=== PATIENT | male | born 1995 | race Two or more races ===

== ENCOUNTER 2019-01-14 14:04 | Emergency (ER) | payer MEDICAID ==
[~2019-01-14] VITALS: Ht 160 cm; Wt 72.1 kg
[2019-01-14 15:14] VITALS: BP 137/97
== END 2019-01-14 15:59 | disposition home or self-care (01) ==
LOC: ER 14:04
DX: S39.012A Strain of muscle, fascia and tendon of lower back, initial encounter (principal); X58.XXXA Exposure to other specified factors, initial encounter; Y93.89 Activity, other specified; Y92.89 Other specified places as the place of occurrence of the external cause; Y99.8 Other external cause status
CPT/HCPCS: 81002

== ENCOUNTER 2025-02-15 16:11 | Inpatient (IN) | payer MEDICAID ==
[~2025-02-15] VITALS: Ht 160 cm; Wt 50.1 kg
[2025-02-15] MEDS: SODIUM CHLORIDE 0.9% 1,000 ML IV ONE ×2 (16:30→20:23)
[2025-02-15] MEDS: LORazepam 2MG/ML-1ML VIAL ONE (17:05)
[2025-02-15] MEDS: LORazepam 2MG/ML-1ML VIAL IV ONE (17:05)
[2025-02-15] MEDS: ONDANSETRON HCL 4 MG/2 ML VIAL ONE (17:05)
[2025-02-15] MEDS: ONDANSETRON HCL 4 MG/2 ML VIAL IV ONE (17:05)
--- NOTE | 2025-02-15 17:07 | ED.PDOC ---
Psychiatric HPI Comments 29 y/o M, presents to the ED for CC of alcohol withdrawal. Patient states, he has been binge drinking Vodka for [id number], having approximately +10 shots daily; endorses last drink to have been as of this morning (02/15/25). Patient relays, that he is a Ex. liver and kidney transplant recipient and Today (02/15/25) is the anniversary of his transplant; endorses this date to be a reoccurring stressor. Upon arrival to the ED, patient appears anxious and is unable to sit still. Patient denies visual hallucinations, auditory hallucinations, palpitations, nausea, vomiting, irritability, or mood swings. Chief Complaint: Withdrawal Time Seen by MD: 17:00 Primary Care Provider: BUSHRA Heath Notes: Nurses Notes, Medications, Allergies Information Source: Patient Mode of Arrival: Ambulatory Severity of Pain: None Severity of Mental Status: None Severity of Symptoms: Moderate Timing: Days Duration: Days Prehospital treatment: None Presents with: Alcohol Intoxication Ingestion: Intentional Current substance abuse: ETOH History of: None Quality: None Associated signs and symptoms: ETOH Past Medical History PAST MEDICAL HISTORY: DM, HTN Past Medical History (Other): Liver and Kidney Transplant Surgical History: Denies all surgeries Family History Family History: Reviewed,noncontributory to illness Social History Smoker: Non-Smoker Alcohol: Heavy Drugs: Denies Drug Use Lives In: Home Constitutional: denies: chills, diaphoresis, fatigue, fever, malaise, sweats, weakness, others EENTM: denies: blurred vision, double vision, ear bleeding, ear discharge, ear drainage, ear pain, ear ringing, eye pain, eye redness, hearing loss, mouth pain, mouth swelling, nasal discharge, nose bleeding, nose congestion, nose pain, photophobia, tearing, throat pain, throat swelling, voice changes, others Respiratory: denies: cough, hemoptysis, orthopnea, SOB at rest, shortness of breath, SOB with excertion, stridor, wheezing, others Cardiovascular: denies: chest pain, dizzy spells, diaphoresis, Dyspnea on exertion, edema, irregular heart beat, left arm pain, lightheadedness, palpitations, PND, syncope, others Gastrointestinal: reports: nausea; denies: abdomen distended, abdominal pain, blood streaked bowels, constipated, diarrhea, dysphagia, difficulty swallowing, hematemesis, melena, poor appetite, poor fluid intake, rectal bleeding, rectal pain, vomiting, others Genitourinary: denies: burning, dysuria, flank pain, frequency, hematuria, incontinence, penile discharge, penile sore, pain, testicle pain, testicle swelling, urgency, others Neurological: denies: dizziness, fainting, headache, left sided numbness, left sided weakness, numbness, paresthesia, pre-existing deficit, right sided numbness, right sided weakness, seizure, speech problems, tingling, tremors, weakness, others Musculoskeletal: denies: back pain, gout, joint pain, joint swelling, muscle pain, muscle stiffness, neck pain, others Integumetry: denies: bruises, change in color, change in hair/nails, dryness, laceration, lesions, lumps, rash, wounds, others Allergic/Immunocompromised: denies: Difficulty Healing, Frequent Infections, Hives, Itching, others Hematologic/Lymphatic: denies: anemia, blood clots, easy bleeding, easy bruising, swollen glands, others Endocrine: denies: excessive hunger, excessive sweating, excessive thirst, excessive urination, flushing, intolerance to cold, intolerance to heat, unexp lained weight gain, unexplained weight loss, others Psychiatric: reports: anxiety; denies: bipolar disorder, depression, hopeless, panic disorder, schizophrenia, sleepless, suicidal, others All Other Systems: Reviewed and Negative Physical Exam General Appearance: No Apparent Distress, Normal, Other (anxious appearing) HEENT: Normal ENT Inspection, Pharynx Normal Neck: Full Range of Motion, Non-Tender, Normal, Normal Inspection Respiratory: Chest Non-Tender, Lungs Clear, No Accessory Muscle Use, No Respiratory Distress, Normal Breath Sounds Cardiovascular: No Edema, No Murmur, No Gallop, Normal Peripheral Pulses, Regular Rate/Rhythm Breast Exam: Deferred Gastrointestinal: No Organomegaly, Non Tender, No Pulsatile Mass, Normal Bowel Sounds, Soft Genitalia: Deferred Pelvic: Deferred Rectal: Deferred Extremities: No calf tenderness, Normal capillary refill, Normal inspection, Normal range of motion, Non-tender, No pedal edema Musculoskeletal : Apperance: Normal Neurologic: Alert, 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 Was a procedure done?: No Psych Differential Dx Intoxication Differential Dx: Alcohol Withdraw Syndrome, Dehydration, Electrolyte Imbalance, Intoxication X-Ray, Labs, Meds, VS Vital Signs Date Time Temp Pulse Resp B/P (MAP) Pulse Ox O2 Delivery O2 Flow Rate FiO2 02/15/25 17:15 94 16 98 Room Air* 0 21 02/15/25 17:15 98.0 94 16 116/86 (96) 98 98.0 02/15/25 16:31 100 02/15/25 16:25 98.2 125 16 133/93 96 98.2 Lab Test 02/15/25 17:29 Range/Units White Blood Count 8.0 4.4-10.8 10^3/uL Red Blood Count 5.12 4.5-5.90 10^6/uL Hemoglobin 16.1 13.5-17.5 g/dL Hematocrit 46.4 41.0-53.0 % Mean Corpuscular Volume 90.6 80.0-100.0 fL Mean Corpuscular Hemoglobin 31.4 28.0-32.0 pg Mean Corpuscular Hemoglobin Concent 34.6 32.0-36.0 g/dL Red Cell Distribution Width 13.3 11.8-14.3 % Platelet Count 244 140-450 10^3/uL Mean Platelet Volume 7.4 6.9-10.8 fL Neutrophils (%) (Auto) 58.9 37.0-80.0 % Lymphocytes (%) (Auto) 32.3 10.0-50.0 % Monocytes (%) (Auto) 8.5 0.0-12.0 % Eosinophils (%) (Auto) 0.0 0.0-7.0 % Basophils (%) (Auto) 0.3 0.0-2.0 % Neutrophils # (Auto) 4.7 1.6-8.6 10 ^3/uL Lymphocytes # (Auto) 2.6 0.4-5.4 10 ^3/uL Monocytes # (Auto) 0.7 0-1.3 10 ^3/uL Eosinophils # (Auto) 0 0-0.8 10 ^3/uL Basophils # (Auto) 0 0-0.2 10 ^3/uL Nucleated Red Blood Cells 0.2 % Sodium Level 142 136-145 mmol/L Potassium Level 4.0 3.5-5.1 mmol/L Chloride Level 101 98-107 mmol/L Carbon Dioxide Level 23 20-31 mmol/L Anion Gap 18 H 5-15 Blood Urea Nitrogen 8 L 9-23 mg/dL Creatinine 0.87 0.700-1.30 mg/dL Glomerular Filtration Rate Calc 120 >90 mL/min BUN/Creatinine Ratio 9.2 L 10.0-20.0 Serum Glucose 273 H 74-106 mg/dL Calcium Level 8.1 L 8.7-10.4 mg/dL Total Bilirubin 0.4 0.2-1.0 mg/dL Aspartate Amino Transferase (AST) 50 H 13-40 U/L Alanine Aminotransferase (ALT) 46 H 7-40 U/L Alkaline Phosphatase 98 46-116 U/L Total Protein 6.3 5.7-8.2 g/dL Albumin 3.9 3.2-4.8 g/dL Plasma/Serum Blood Alcohol 283.6 H <10 mg/dL Current Medications Medications (Trade) Dose Ordered Sig/Rosa Isela Route Start Time Stop Time Status Last Admin Lorazepam (Ativan Inj) 1 mg ONCE ONCE IV 02/15/25 17:00 02/15/25 17:01 DC 02/15/25 17:05 Ondansetron HCl (Zofran) 4 mg ONCE ONCE IV 02/15/25 17:00 02/15/25 17:01 DC 02/15/25 17:05 Sodium Chloride 1,000 ml @ 1,000 mls/hr Q1H ONCE IV 02/15/25 16:30 02/15/25 17:32 DC 02/15/25 16:30 Metoclopramide HCl (Reglan Injection) 10 mg ONCE ONCE IV 02/15/25 17:45 02/15/25 17:46 DC 02/15/25 17:42 X-Ray, Labs, Meds, VS Comment Patient is fairly shaky, to be admitted for alcohol withdrawal Concerns of possible delirium tremors Patient currently hemodynamically stable Time of 1ST Reevaluation: 17:30 Reevaluation 1ST: Unchanged Patient Education/Counseling: Diagnosis, Treatment Family Education/Counseling: No Family Present Departure 1 Departure Time of Disposition: 18:58 Impression: Primary Impression: Alcohol withdrawal delirium Disposition: ADMITTED INPATIENT Condition: Stable Discharged With: Self Critical Care Note Critical Care Time?: No Stability Stability form required: No Heart Score Heart Score: Heart Score Response (Comments) Value History N/A 0 EKG N/A 0 Age N/A 0 Risk Factors N/A 0 Troponin N/A 0 Total 0 I personally scribed for AUNDREA JOSHI ([email or web address]) on 02/15/25 at 17:07. Electronically submitted by Jaja Eldridge ([email or web address]). I personally scribed for AUNDREA JOSHI ([email or web address]) on 02/15/25 at 17:18. Electronically submitted by Jaja Eldridge ([email or web address]). AUNDREA JOSHI Feb 15, 2025 17:07
[2025-02-15 17:15] VITALS: PULSE 94; RESP 16; O2SAT 98
--- NOTE | 2025-02-15 17:39 | ECG ---
[facility] Test Date: 2025-02-15 Test Time: 16:31:55 Pat Name: KALANI DONIS Department: ED Room: Gender: Commercial Subcontractor: Ryan : 1995 Requested By: AUNDREA HUBER* Order Number: [id number] Reading MD: Dominik Pineda Measurements Intervals [place] Rate: 100 P: 54 MI: 122 QRS: 99 QRSD: 80 T: -26 QT: 323 QTc: 417 Interpretive Statements Sinus tachycardia Borderline right axis deviation Nonspecific repol abnormality, inferior leads Electronically Signed On 02-15-2025 19:26:12 PST by Dominik Pineda Please click the below link to view image of tracing.
[2025-02-15] MEDS: METOCLOPRAMIDE HCL 5MG/ml INJ 2ml VIAL IV ONE (17:42)
[2025-02-15 17:58] LABS: Hematocrit 46.4 % (41.0-53.0); Hemoglobin 16.1 g/dL (13.5-17.5); Mean Corpuscular Hemoglobin 31.4 pg (28.0-32.0); Mean Corpuscular Volume 90.6 fL (80.0-100.0); Nucleated Red Blood Cells % 0.2 %
[2025-02-15 18:04] LABS: Albumin 3.9 g/dL (3.2-4.8); Alkaline Phosphatase 98 U/L (46-116); Anion Gap 18 (5-15); BUN/Creatinine Ratio 9.2 (10.0-20.0); Carbon Dioxide 23 mmol/L (20-31); Chloride 101 mmol/L (98-107); Potassium 4.0 mmol/L (3.5-5.1); Sodium 142 mmol/L (136-145); Total Protein 6.3 g/dL (5.7-8.2)
[2025-02-15 18:05] LABS: Bilirubin, Total 0.4 mg/dL (0.2-1.0)
[2025-02-15 18:17] LABS: Alanine Aminotransferase 46 U/L (7-40); Blood Urea Nitrogen 8 mg/dL (9-23); Calcium 8.1 mg/dL (8.7-10.4); Glucose 273 mg/dL (74-106)
[2025-02-15] MEDS ORDERED: DEXTROSE (50%) 50ML SYRG IV PRN (19:15)
--- NOTE | 2025-02-15 19:23 | DVHHP2 ---
History of Present Illness Reason for Visit: Alcohol intoxication History of Present Illness 29-year-old male presents for evaluation of alcohol intoxication. Patient reports binge drinking over the past 10 days. Reports tremors and occasional palpitations. He does have a history of liver and kidney transplant from last year. Past Medical History Hypertension, diabetes mellitus Past Surgical History Liver and kidney transplant Family History Noncontributory Smoke: No ALCOHOL: heavy Drugs: None Lives: with Family Review of Systems Review of Systems Review of systems are currently negative otherwise addressed in HPI. Allergies: Coded Allergies: No Known Drug Allergy (Verified Allergy, Unknown, 02/15/25) Medications Current Medications Medications Dose Ordered Sig/Rosa Isela Route Start Time Stop Time Status Last Admin Dose Admin Folic Acid 1 mg/ Magnesium Sulfate 8 meq/ Multivitamins 10 ml/Thiamine HCl 100 mg/Sodium Chloride 1,013.2 ml @ 126.247 mls/hr DAILY@1800 INJ 02/16/25 18:00 Exam Vital Signs Vital Signs Date Time Temp Pulse Resp B/P (MAP) Pulse Ox O2 Delivery O2 Flow Rate FiO2 02/15/25 19:15 100 17 129/71 (90) 99 02/15/25 17:15 Room Air* 0 21 02/15/25 17:15 98.0 98.0 Exam Gen: 29-year-old male in mild distress Skin: Warm, dry, normal color and texture, no rash. HEENT: Normocephalic atraumatic, mucous membranes moist and pink. Neck: Cervical and supraclavicular nodes normal without enlargement, trachea is midline, thyroid gland is normal without masses. Pulmonary: Clear to auscultation and percussion bilaterally. Cardiac: Regular rate and rhythm. No murmur Abdomen: Soft, nontender, nondistended, bowel sounds present all 4 quadrants, no guarding, no rigidity, no organomegaly. Extremities: No cyanosis, clubbing, no edema Neuro: Cranial nerves II through XII grossly intact, normal affect and speech, no focal motor deficits. Labs/Xrays Labs Test 02/15/25 17:29 Range/Units White Blood Count 8.0 4.4-10.8 10^3/uL Red Blood Count 5.12 4.5-5.90 10^6/uL Hemoglobin 16.1 13.5-17.5 g/dL Hematocrit 46.4 41.0-53.0 % Mean Corpuscular Volume 90.6 80.0-100.0 fL Mean Corpuscular Hemoglobin 31.4 28.0-32.0 pg Mean Corpuscular Hemoglobin Concent 34.6 32.0-36.0 g/dL Red Cell Distribution Width 13.3 11.8-14.3 % Platelet Count 244 140-450 10^3/uL Mean Platelet Volume 7.4 6.9-10.8 fL Neutrophils (%) (Auto) 58.9 37.0-80.0 % Lymphocytes (%) (Auto) 32.3 10.0-50.0 % Monocytes (%) (Auto) 8.5 0.0-12.0 % Eosinophils (%) (Auto) 0.0 0.0-7.0 % Basophils (%) (Auto) 0.3 0.0-2.0 % Neutrophils # (Auto) 4.7 1.6-8.6 10 ^3/uL Lymphocytes # (Auto) 2.6 0.4-5.4 10 ^3/uL Monocytes # (Auto) 0.7 0-1.3 10 ^3/uL Eosinophils # (Auto) 0 0-0.8 10 ^3/uL Basophils # (Auto) 0 0-0.2 10 ^3/uL Nucleated Red Blood Cells 0.2 % Sodium Level 142 136-145 mmol/L Potassium Level 4.0 3.5-5.1 mmol/L Chloride Level 101 98-107 mmol/L Carbon Dioxide Level 23 20-31 mmol/L Anion Gap 18 H 5-15 Blood Urea Nitrogen 8 L 9-23 mg/dL Creatinine 0.87 0.700-1.30 mg/dL Glomerular Filtration Rate Calc 120 >90 mL/min BUN/Creatinine Ratio 9.2 L 10.0-20.0 Serum Glucose 273 H 74-106 mg/dL Calcium Level 8.1 L 8.7-10.4 mg/dL Total Bilirubin 0.4 0.2-1.0 mg/dL Aspartate Amino Transferase (AST) 50 H 13-40 U/L Alanine Aminotransferase (ALT) 46 H 7-40 U/L Alkaline Phosphatase 98 46-116 U/L Total Protein 6.3 5.7-8.2 g/dL Albumin 3.9 3.2-4.8 g/dL Plasma/Serum Blood Alcohol 283.6 H <10 mg/dL SEPSIS Sepsis Screen Date sepsis recognized/suspect: Feb 15, 2025 Time Sepsis recognized/suspect: 1714 Recent Procedure: No On Antibiotic Therapy: No Respiratory Rate >20: No Heart Rate >90: Yes Temp<36 C (96.8 F) or >38.3 C: No SBP <90 or MAP <65 mmHG: No New Acute Mental Status Change: No Is the patient on CPAP, BIPAP,: No Physician Orders Urinalysis (02/15/25 16:48) Head Without Contrast (02/15/25 18:56) Folic Acid... (02/16/25 18:00) (Nf) Mycophenolic Acid (02/15/25 22:00) Tacrolimus (Prograf) (02/15/25 22:00) Consistent Carb(Ccho)Diabetes (02/16/25 Breakfast) Lisinopril Tablet (Zestril Tablet) (02/16/25 10:00) Chlordiazepoxide Hcl Capsule (Librium Ca (02/15/25 19:15) NS (02/15/25 19:15) Admit (02/15/25 19:15) Ondansetron Hcl (Zofran) (02/15/25 19:15) Condition: Stable (02/15/25 19:15) Bedrest With Bathroom Privileg (02/15/25 19:15) Glucose Blood (Accu-Chek Comfort Curve T (02/16/25 00:00) Mild Sliding Scale Npo - Q6hr (02/16/25 00:00) Dextrose 50% Syringe (02/15/25 19:15) Vital Signs Date Time Temp Pulse Resp B/P (MAP) Pulse Ox O2 Delivery O2 Flow Rate FiO2 02/15/25 19:15 100 17 129/71 (90) 99 02/15/25 17:15 94 16 98 Room Air* 0 21 02/15/25 17:15 98.0 94 16 116/86 (96) 98 98.0 02/15/25 16:31 100 02/15/25 16:25 98.2 125 16 133/93 96 98.2 Laboratory Tests Test 02/15/25 17:29 White Blood Count 8.0 10^3/uL (4.4-10.8) Medications Medications Dose Ordered Sig/Rosa Isela Route Start Time Stop Time Status Last Admin Dose Admin Lorazepam 1 mg ONCE ONCE IV 02/15/25 17:00 02/15/25 17:01 DC 02/15/25 17:05 1 MG Metoclopramide HCl 10 mg ONCE ONCE IV 02/15/25 17:45 02/15/25 17:46 DC 02/15/25 17:42 10 MG Ondansetron HCl 4 mg ONCE ONCE IV 02/15/25 17:00 02/15/25 17:01 DC 02/15/25 17:05 4 MG Sodium Chloride 1,000 ml @ 1,000 mls/hr Q1H ONCE IV 02/15/25 16:30 02/15/25 17:32 DC 02/15/25 16:30 1,000 MLS/HR Assessment/Plan Assessment/Plan Assessment Alcohol intoxication Toxic encephalopathy Status post liver/kidney transplant Plan Admit the patient to [facility] to the hospitalist Maintenance IV fluids Librium Resume home medications Continue treatment per orders. Plan discussed with: Patient My Orders Orders - PHILIPPE FRANKLIN Procedure Category Date Status Time (Nf) Mycophenolic Acid PHA 02/15/25 Transmitted 22:00 Tacrolimus (Prograf) PHA 02/15/25 Transmitted 22:00 Consistent DIET 02/16/25 Transmitted Carb(Ccho)Diabetes Breakfast Lisinopril Tablet PHA 02/16/25 Transmitted (Zestril Tablet) 10:00 Chlordiazepoxide Hcl PHA 02/15/25 Transmitted Capsule (Librium Ca 19:15 NS PHA 02/15/25 Transmitted 19:15 Admit ADMIT 02/15/25 Transmitted 19:15 Ondansetron Hcl PHA 02/15/25 Transmitted (Zofran) 19:15 Condition: Stable CARMELA 02/15/25 Transmitted 19:15 Bedrest With Bathroom CARMELA 02/15/25 Transmitted Privileg 19:15 Glucose Blood PHA 02/16/25 Transmitted (Accu-Chek Comfort 00:00 Mild Sliding Scale PHA 02/16/25 Transmitted Npo - Q6hr 00:00 Dextrose 50% Syringe PHA 02/15/25 Transmitted 19:15 Date of Service: Feb 15, 2025 Billing Provider: PHILIPPE FRANKLIN Common Visit Codes: 80046-[id number] INP/OBS CARE (MOD) PHILIPPE FRANKLIN Feb 15, 2025 19:23
[2025-02-15 19:30] VITALS: PULSE 91; RESP 18; O2SAT 98
--- NOTE | 2025-02-15 19:48 | DVH ---
EXAM: CT HEAD WITHOUT CONTRAST INDICATION: altered TECHNIQUE: CT images of the head were obtained without administration of IV contrast. CT scans at this facility use dose modulation, iterative reconstruction, and/or weight based dosing when appropriate to reduce radiation dose to as low as reasonably achievable. COMPARISON: None FINDINGS: PARENCHYMA: No acute hemorrhage. There is no mass effect, midline shift, or herniation. There is preservation of the [place] white differentiation. VENTRICLES: No hydrocephalus. EXTRA-AXIAL SPACES: No extra-axial fluid collections. OTHER: The bony structures are intact. Visualized portions of the paranasal sinuses and mastoid air cells are clear. IMPRESSION: 1. No CT evidence of an acute intracranial abnormality.
[2025-02-15] MEDS: ONDANSETRON HCL 4 MG/2 ML VIAL IV PRN (20:26)
[2025-02-15] MEDS: FOLIC ACID 1 MG, MAGNESIUM SULF SDV 50% 8 MEQ, MULTIPLE VITAMIN 10 ML, THIAMINE INJ 100... INJ ONE (22:00)
[2025-02-15] MEDS: TACROLIMUS 1 MG CAP PO SCH (22:05)
[2025-02-16] VITALS (8 sets, daily range): BP systolic 128–139; BP diastolic 83–184; PULSE 69–93; RESP 16–20; TEMP 97.8–100.2; O2SAT 97–99
[2025-02-16] MEDS: ACCU-CHEK COMFORT CURVE STRIP VI SCH (00:25)
[2025-02-16] MEDS: InsuLIN REG 1unit/0.01ml Soln (100units/ml) SC SCH (00:37)
[2025-02-16] MEDS: LORazepam 2MG/ML-1ML VIAL IV PRN (07:34)
[2025-02-16] MEDS ORDERED: DAPA1TAB4 PO (07:44)
[2025-02-16] MEDS ORDERED: TACR1CAP4 PO (07:44)
[2025-02-16] MEDS ORDERED: MYCO250C PO (07:44)
[2025-02-16] MEDS ORDERED: LISI-275 PO (07:44)
[2025-02-16] MEDS ORDERED: PRED1PAK8 PO (07:44)
[2025-02-16 08:57] LABS: Hematocrit 46.2 % (41.0-53.0); Hemoglobin 15.9 g/dL (13.5-17.5); Mean Corpuscular Hemoglobin 31.7 pg (28.0-32.0); Mean Corpuscular Volume 91.8 fL (80.0-100.0); Nucleated Red Blood Cells % 0.1 %
[2025-02-16 09:13] LABS: Albumin 3.8 g/dL (3.2-4.8); Alkaline Phosphatase 93 U/L (46-116); Anion Gap 11 (5-15); BUN/Creatinine Ratio 14.8 (10.0-20.0); Bilirubin, Total 0.8 mg/dL (0.2-1.0); Blood Urea Nitrogen 13 mg/dL (9-23); Carbon Dioxide 29 mmol/L (20-31); Chloride 101 mmol/L (98-107); Potassium 4.0 mmol/L (3.5-5.1); Sodium 141 mmol/L (136-145); Total Protein 5.9 g/dL (5.7-8.2)
[2025-02-16 09:19] LABS: Alanine Aminotransferase 42 U/L (7-40); Calcium 8.6 mg/dL (8.7-10.4); Glucose 193 mg/dL (74-106)
--- NOTE | 2025-02-16 09:54 | DVH ---
INDICATION: Hepatic steatosis/cirrhosis TECHNIQUE: Multiple real-time sonographic images of the abdomen were obtained. COMPARISON: None FINDINGS: The liver is homogenous in echogenicity. The liver measures 15cm. No intrahepatic biliary ductal dilatation is noted. Gallbladder removed. Common bile duct measures 4 mm. The right kidney measures 8cm. No hydronephrosis. The pancreas is not well visualized due to obscuration from bowel gas. The visualized portions of the IVC and aorta are grossly unremarkable. IMPRESSION: Normal exam of the abdomen.
[2025-02-16] MEDS: CYANOCOBALAMIN 500 MCG TAB PO SCH (10:40)
[2025-02-16] MEDS: FOLIC ACID 1 MG TAB PO ONE (10:40)
[2025-02-16] MEDS: LISINOPRIL 5 MG TAB PO SCH (10:43)
[2025-02-16] MEDS: INSULIN LANTUS (GLARGINE) 1 /0.01ml (100units/ml) SC ONE (12:11)
[2025-02-16] MEDS: INSULIN LANTUS (GLARGINE) 1 /0.01ml (100units/ml) SC SCH (12:12)
--- NOTE | 2025-02-16 14:26 | DVHINCON2 ---
Date of Service if different f: Feb 16, 2025 Time of Service: 13:30 Consultation ([facility]) Consulting Physician: Leonel Progress: Better Labs Laboratory Tests Test 02/15/25 17:29 02/16/25 08:25 02/16/25 11:42 Plasma/Serum Blood Alcohol 283.6 mg/dL (<10) White Blood Count 7.9 10^3/uL (4.4-10.8) Red Blood Count 5.03 10^6/uL (4.5-5.90) Hemoglobin 15.9 g/dL (13.5-17.5) Hematocrit 46.2 % (41.0-53.0) Mean Corpuscular Volume 91.8 fL (80.0-100.0) Mean Corpuscular Hemoglobin 31.7 pg (28.0-32.0) Mean Corpuscular Hemoglobin Concent 34.5 g/dL (32.0-36.0) Red Cell Distribution Width 12.8 % (11.8-14.3) Platelet Count 190 10^3/uL (140-450) Mean Platelet Volume 7.4 fL (6.9-10.8) Neutrophils (%) (Auto) 73.8 % (37.0-80.0) Lymphocytes (%) (Auto) 19.0 % (10.0-50.0) Monocytes (%) (Auto) 6.9 % (0.0-12.0) Eosinophils (%) (Auto) 0.0 % (0.0-7.0) Basophils (%) (Auto) 0.3 % (0.0-2.0) Neutrophils # (Auto) 5.8 10 ^3/uL (1.6-8.6) Lymphocytes # (Auto) 1.5 10 ^3/uL (0.4-5.4) Monocytes # (Auto) 0.5 10 ^3/uL (0-1.3) Eosinophils # (Auto) 0 10 ^3/uL (0-0.8) Basophils # (Auto) 0 10 ^3/uL (0-0.2) Nucleated Red Blood Cells 0.1 % Sodium Level 141 mmol/L (136-145) Potassium Level 4.0 mmol/L (3.5-5.1) Chloride Level 101 mmol/L (98-107) Carbon Dioxide Level 29 mmol/L (20-31) Anion Gap 11 (5-15) Blood Urea Nitrogen 13 mg/dL (9-23) Creatinine 0.88 mg/dL (0.700-1.30) Glomerular Filtration Rate Calc 119 mL/min (>90) BUN/Creatinine Ratio 14.8 (10.0-20.0) Serum Glucose 193 mg/dL (74-106) Hemoglobin A1c 10.7 % A1C (<5.7) Calcium Level 8.6 mg/dL (8.7-10.4) Magnesium Level 1.7 mg/dL (1.6-2.6) Total Bilirubin 0.8 mg/dL (0.2-1.0) Aspartate Amino Transf (AST/SGOT) 50 U/L (13-40) Alanine Aminotransferase (ALT/SGPT) 42 U/L (7-40) Alkaline Phosphatase 93 U/L (46-116) Total Protein 5.9 g/dL (5.7-8.2) Albumin 3.8 g/dL (3.2-4.8) Vitamin B12 Level 1231 pg/mL (211-911) Vitamin D 25-Hydroxy 52.9 ng/mL (30.0-100) Thyroid Stimulating Hormone (TSH) 1.32 uIU/mL (0.55-4.78) Bedside Glucose 266 mg/dl (70-106) Appetite: Poor Side effects of medications: No Appearance: Stated age Psychomotor activity: WNL Behavioral: Cooperative Eye contact: Avoids Speech: Soft Affect: Restricted Mood: Depressed Thought processes: Linear/Goal-directed Thought content: WNL Suicidal ideations: Absent Homicidal ideations: Absent Orientation: Person, Place, Time Memory intact: Remote (good) Intellect: Average Abstractability: Marginal Concentration: Limited Attention: Limited Judgement: Marginal Insight: Marginal Vitals Vital Signs Date Time Temp Pulse Resp B/P (MAP) Pulse Ox O2 Delivery O2 Flow Rate FiO2 02/16/25 13:00 99.2 69 18 139/84 (102) 98 99.2 02/16/25 06:08 Room Air* 0 21 Current medications Current Medications Medications Dose Ordered Sig/Rosa Isela Route Start Time Stop Time Status Last Admin Dose Admin Patient Own Medication 720 mg BID PO 02/15/25 22:00 02/16/25 10:42 720 MG Tacrolimus 2 mg BID PO 02/15/25 22:00 02/16/25 10:41 2 MG Lisinopril 10 mg DAILY PO 02/16/25 10:00 02/16/25 10:43 10 MG Chlordiazepoxide HCl 25 mg Q6HPRN PRN PO 02/15/25 19:15 Ondansetron HCl 4 mg Q4HP PRN IV 02/15/25 19:15 02/15/25 20:26 4 MG Diagnostic Test (Pha) 1 strip Q6HR 02/16/25 00:00 02/16/25 12:11 1 STRIP Insulin Human Regular Q6HR SC 02/16/25 00:00 02/16/25 12:15 6 UNITS Dextrose 50 ml UD PRN IV 02/15/25 19:15 Folic Acid 1 mg/ Magnesium Sulfate 8 meq/ Multivitamins 10 ml/Thiamine HCl 100 mg/Sodium Chloride 1,013.2 ml @ 126.247 mls/hr DAILY@1800 INJ 02/16/25 18:00 Lorazepam 1 mg Q2HP PRN IV 02/16/25 00:15 02/16/25 10:44 1 MG Cyanocobalamin 500 mcg DAILY PO 02/16/25 08:00 02/16/25 10:40 500 MCG Prednisone 5 mg DAILY PO 02/16/25 10:00 02/16/25 10:39 5 MG Insulin Glargine 20 units QAM SC 02/16/25 10:15 02/16/25 12:12 20 UNITS Treatment plan discussed: With staff Medication adjusted: Yes Labs ordered: No Type: Voluntary Diagnosis: [place] I : [place] II : [place] III : [place] IV : [place] V : Plan : History of Present Illness The patient is a 29-year-old single male who lives with his family and is currently unemployed. His psychiatric history includes Major Depressive Disorder, generalized anxiety, and alcohol use disorder. He has previously been treated with Lexapro and Vistaril. He was admitted to the medical floor for the management of alcohol withdrawal, and Psychiatry was consulted to evaluate possible depression and ongoing alcohol use. The patient was seen and evaluated by the senior underwriter via the telepsychiatry platform. He appeared slightly anxious and maintained poor eye contact during the assessment. He reported feeling increasingly depressed, overwhelmed, and frustrated over the past several days. He described persistent feelings of worthlessness and hopelessness and expressed significant guilt about drinking again shortly after receiving a liver transplant five days ago. He stated that he had been drinking regularly, with his most recent alcohol use occurring yesterday, and he endorsed a history of alcohol withdrawal with worsening symptoms. Although he denied any current suicidal ideation, intent, or plan, he reported poor sleep, decreased appetite, and diminished energy. Supportive therapy and psychoeducation were provided during the encounter. The patient denied any homicidal ideation and denied auditory or visual hallucinations, paranoid thoughts, or other psychotic symptoms. There was no evidence that he was internally preoccupied or responding to internal stimuli. With respect to anxiety, he endorsed a history of generalized anxiety but denied symptoms consistent with panic disorder, agoraphobia, social anxiety disorder, or specific phobias. He also denied any symptoms suggestive of elena, including decreased need for sleep, elevated mood, increased goal-directed activity, or im pulsive behaviors. On mental status examination, the patient appeared as a well-developed young male in no acute distress. He was cooperative but displayed noticeable anxiety. His speech was normal in rate, rhythm, and volume. His mood was described as de pressed and overwhelmed, and his affect was constricted but congruent with his mood. His thought processes were linear and goal-directed, and his thought content did not include suicidal or homicidal ideation, hallucinations, or delusional beliefs. He was alert and oriented, with no gross cognitive deficits observed. Insight and judgment were limited, particularly regarding his alcohol use and recent relapse. Overall, the patient presents with worsening depressive symptoms in the context of active alcohol use, recent liver transplantation, and current alcohol withdrawal. His presentation is consistent with a depressive episode compounded by alcohol-related concerns and significant psychosocial stress. There are no acute safety concerns at this time, as he denies suicidal and homicidal ideation and does not exhibit psychotic features. Continued monitoring on the medical unit is appropriate while addressing withdrawal, mood symptoms, and relapse prevention needs. Supportive therapy and coping-skill reinforcement were provided. Review of Systems Review of systems, please see the HPI and problem list above. Otherwise: -Constitutional symptoms: None reported. -Eye/ENT: None reported -Respiratory symptoms: None reported. -Cardiovascular symptoms: None reported. -GI symptoms: None reported. -Musculoskeletal symptoms: None reported -Neurologic symptoms: None reported -Psychiatric symptoms: See HPI -Other significant review of systems: None reported. Mental State Examination -General Appearance: Young M who was examined at bedside in his hospital room. He is in no acute physical distress. Grooming and personal hygiene are poor. Musculoskeletal development is normal. There is no evidence of movement disorder. -Attitude: The patient is alert and superficially cooperative -Eye Contact: fair eye contact. -Psychomotor Agitation: None -Level of consciousness: Alert awake -Orientation: well orientated to time/place/person. -Mood/Affect: Mood is depressed Affect is constricted -Speech: Volume (decreased ). Rate (Normal). Tone (Normal). -Cognition: Attention span is poor. Memory for recent and remote events appears to be intact. -Thought Process: There is no evidence of psychotic thought process disorder. -Thought Content: There is no evidence of hallucinations, delusions, illusions or agitation. Denies any SI. There is no evidence of homicidal ideation. -Insight/Judgment: Insight and judgment for routine life events is poor . Musculoskeletal/neurological Examination -Pt was noted to have a norm body habitus. -Muscle Strength and tone was considered normal. -No spasticity or EPS were noted. -Gait and station were normal. Substance Abuse -Alcohol: drink unknown amount of beer intermittently. Last drink was yesterday. Denies any history of etoh withdrawal seizures. Denies any history of etoh withdrawal DTs -Denies any other illicit drug use. -denies any history of detox/rehabs Past Psychiatric History. -Self reported history of depression and anxiety -History of psychotropic medications use in the past. History of Lexapro and Vustaril use -Denies any history of inpatient psychiatric admission. -Denies any history of suicidal ideation or attempt. -Denies any History of outpatient services. -Denies any history of Violence. Social/developmental History. -Pt is single, never and lives with family -Pt is unemployed. -Pt denies any access to weapons or guns -Denies any history of services. -Denies any History of abuse including sexual, physical or emotional abuse -Denies any history probation, parole or detention. Past Medical History/Allergies -No significant medical history. -Allergies : NKDA Family History -Denies Assessment/Plan The patient is a 29-year-old single male who lives with his family and is currently unemployed. His psychiatric history includes Major Depressive Disorder, generalized anxiety, and alcohol use disorder. He has previously been treated with Lexapro and Vistaril. He was admitted to the medical floor for the management of alcohol withdrawal, and Psychiatry was consulted to evaluate po ssible depression and ongoing alcohol use. The patient presents with a depressed mood complicated by active alcohol use in the setting of a recent liver transplant. He denies any suicidal or homicidal ideation and denies auditory or visual hallucinations or delusional thinking. Psychoeducation was provided regarding coping skills, the importance of continuity of care, medication adherence, and psychotherapy. The patient verbalized understanding and agreement with the plan at this time. Legal: Vol Diagnosis Psychiatric Dx: MMD recurrent Alcohol use disorder Medical Dx: See List Plan -Continue to optimize medical management at this time. -Start Remeron 15mg po qhs and consider naltrexone 50mg po qd to decrease alcohol craving -CIWA score, Thiamine, Folic acid and MVT for etoh use -After medical stabilization, patient can be discharge home and refer to outpatient services for continuation of care. -Thank you for the consult. -Please reconsult as needed. Case was discussed with the electrical engineering drafting officer/Diagnosis/Plan Reviewed: Consults SANGEETHA REECE MD Feb 16, 2025 14:26
--- NOTE | 2025-02-16 16:42 | DVHPNRES ---
Progress Note Date Seen: Feb 16, 2025 Resident Creating Document: SUAD WELCH RESIDENT Medical Necessity Reason Pt with a Central, PICC or Fol: No Subjective Review of Systems Patient is 29 years old male with past medical history of hypertension, diabetes mellitus likely type 2 on insulin, history of alcoholic liver failure, status post liver and kidney transplant, chronic alcoholic, major depressive disorder, generalized anxiety came with a complaint of BC drinking followed by nausea vomiting. As per patient he has been having binge drinking, 50 mL of 10 shortness every day for last 10 days. Started having nausea and vomiting x2, nonbloody. Also reported tremor and palpitation. On admission patient was tachycardic. Initial lab workup revealed AST 50, ALT 46, A1c 10.7, serum alcohol 283, anion gap 18. CT head no acute intracranial abnormality. Ultrasound of the abdomen Normal exam of the abdomen. PMH-hypertension, diabetes mellitus likely type 2 on insulin, history of alcoholic liver failure, status post liver and kidney transplant, chronic alcoholic,major depressive disorder, generalized anxiety PSH- liver and kidney transplant Allergy- NKDA Personal History/ Social History- alcoholic, lives with parents Home medications-insulin short and long-acting, tacrolimus, mycophenolate, prednisolone, lisinopril, Lexapro, Vistaril Review of other system Cardiovascular- deny acute chest pain or shortness of breath or cough or palpitation Respiratory denies cough or short of breath or wheezing Gastrointestinal- nausea and vomiting Musculoskeletal-denies acute joint swelling or tenderness or redness Neurological- palpitation and tremor Psychiatry- denies depression or SI or HI Skin- denies acute rash or purpura Patient is seen today at bedside, labs and chart reviewed. Patient reported feeling better today. Patient has a fine tremor, CIWA 7, on CIWA protocol. Ultrasound of the liver no acute abnormality noted. Restarted patient's home medication tacrolimus, mycophenolate, prednisolone. Patient's tele psych consult to rule out acute depression. Tele psych recommended for Remeron 50 mg p.o. q.h.s.. And also counseled on naltrexone 50 mg p.o. q.d. to decrease alcohol craving.refer to outpatient services for continuation of care. Objective vital signs Vital Sign Date Time Temp Pulse Resp B/P (MAP) Pulse Ox O2 Delivery O2 Flow Rate FiO2 02/16/25 13:00 99.2 69 18 139/84 (102) 98 99.2 02/16/25 06:08 Room Air* 0 21 Total Intake and Output 02/15/25 02/15/25 02/16/25 15:00 23:00 07:00 Intake Total 1000 ml Balance 1000 ml medications Current Medications Medications Dose Ordered Sig/Rosa [place]ela Route Start Time Stop Time Status Last Admin Dose Admin Patient Own Medication 720 mg BID PO 02/15/25 22:00 02/16/25 10:42 720 MG Tacrolimus 2 mg BID PO 02/15/25 22:00 02/16/25 10:41 2 MG Lisinopril 10 mg DAILY PO 02/16/25 10:00 02/16/25 10:43 10 MG Chlordiazepoxide HCl 25 mg Q6HPRN PRN PO 02/15/25 19:15 Ondansetron HCl 4 mg Q4HP PRN IV 02/15/25 19:15 02/15/25 20:26 4 MG Diagnostic Test (Pha) 1 strip Q6HR 02/16/25 00:00 02/16/25 12:11 1 STRIP Insulin Human Regular Q6HR SC 02/16/25 00:00 02/16/25 12:15 6 UNITS Dextrose 50 ml UD PRN IV 02/15/25 19:15 Folic Acid 1 mg/ Magnesium Sulfate 8 meq/ Multivitamins 10 ml/Thiamine HCl 100 mg/Sodium Chloride 1,013.2 ml @ 126.247 mls/hr DAILY@1800 INJ 02/16/25 18:00 Lorazepam 1 mg Q2HP PRN IV 02/16/25 00:15 02/16/25 14:18 1 MG Cyanocobalamin 500 mcg DAILY PO 02/16/25 08:00 02/16/25 10:40 500 MCG Prednisone 5 mg DAILY PO 02/16/25 10:00 02/16/25 10:39 5 MG Insulin Glargine 20 units QAM SC 02/16/25 10:15 02/16/25 12:12 20 UNITS Examination General examination- awake, alert, oriented HEENT- PEERLA, no acute nasal discharge Cardiovascular- S1-S2 audible, rate and rhythm regular, no murmur Respiratory- CTAB, no wheeze or rhonchi Gastrointestinal-nontender, bowel sound+. Nondistended, abdominal scar present Musculoskeletal-no acute joint swelling or tenderness or redness Lower extremity- no leg edema Neurological- cranial nerves intact, no acute dysarthria or dysphagia Psychiatry- denies depression or SI or HI Skin- no acute rash or purpura laboratory and microbiology Laboratory Tests 02/16/25 08:25 Test 02/16/25 08:25 Range/Units Serum Glucose 193 H 74-106 mg/dL Problem List/Assessment/Plan Problem List/Assessment/Plan Assessment and plan # acute alcohol intoxication # toxic encephalopathy # alcohol abuse disorder # transaminitis # metabolic acidosis likely due to alcohol-induced # status post liver kidney transplant -serum alcohol 283 -continue IV fluid as prescribed -patient on CIWA protocol -continue thiamine and folic acid as prescribed -patient is counseled about the effect of alcohol abuse disorder on -monitor vitals # diabetes mellitus likely type 2 with the hypoglycemia -hemoglobin A1c 10.7 -continue insulin as prescribed -monitor blood sugar # hypertension - continue lisinopril 10 mg p.o. daily # status post liver and kidney transplant -resumed home medication tacrolimus, mycophenolate, prednisolone -patient is counseled about the importance of med adherence # major depressive disorder # generalized anxiety disorder -status post tele psych consult, recommended Remeron 50 mg p.o. q.h.s. -continue citalopram 20 mg p.o. daily Diet-low carb, cardiac diet Goals of care, Code status full code ; discussed with >15 minutes PUD prophylaxis: Pantoprazole DVT prophylaxis: Patient ambulating Plan discussed with Dr. Mcclain , nursing staff, Total time spent on patient evaluation, chart review, assessment and plan, discussion discussion >35 minutes Plan discussed with: Patient, Other (RN) My Orders My Orders Orders - SUAD WELCH RESIDENT Procedure Category Date Status Time Vitamin B12 LAB 02/16/25 In Process 07:50 Folate (Folic Acid) LAB 02/16/25 In Process 07:50 Drug Screen LAB 02/16/25 Logged 07:50 Cyanocobalamin PHA 02/16/25 In Process (Vitamin B-12) 08:00 LIVER US 02/16/25 Resulted 08:15 Prednisone Tablet PHA 02/16/25 In Process 10:00 Insulin Lantus PHA 02/16/25 In Process (Glargine) (Lantus) 10:15 Date of Service: Feb 16, 2025 Billing Provider: OLGA MCCLAIN MD Common Visit Codes: [id number] INP/OBS CARE(HIGH) SUAD WELCH RESIDENT Feb 16, 2025 16:42 OLGA MCCLAIN MD Feb 27, 2025 21:03
[2025-02-16] MEDS: CITALOPRAM HYDROBR 20 MG TAB PO SCH (18:34)
[2025-02-16] MEDS: FOLIC ACID 1 MG, MAGNESIUM SULF SDV 50% 8 MEQ, MULTIPLE VITAMIN 10 ML, THIAMINE INJ 100... INJ SCH (18:41)
[2025-02-16 21:54] LABS: Urine Protein, UAD Negative (Negative)
[2025-02-16] MEDS: MIRTAZAPINE 30 MG TAB PO SCH (22:00)
[2025-02-16 22:04] LABS: Cannabinoid Screen, Urine Pos (NEGATIVE)
[2025-02-16 22:07] LABS: Amphetamine Screen, Urine Neg (NEGATIVE); Barbiturate Scree,Urine Neg (NEGATIVE); Benzodiazephine Screen, Urine Neg (NEGATIVE); Cocaine Screen, Urine Neg (NEGATIVE); Opiate Scree,Urine Neg (NEGATIVE); Phencyclidine Screen, Urine Neg (NEGATIVE)
[2025-02-17] VITALS (7 sets, daily range): BP systolic 112–140; BP diastolic 74–104; PULSE 58–82; RESP 16–19; TEMP 97–98.5; O2SAT 97–100
[2025-02-17 06:44] LABS: Hematocrit 48.0 % (41.0-53.0); Hemoglobin 16.9 g/dL (13.5-17.5); Mean Corpuscular Hemoglobin 32.2 pg (28.0-32.0); Mean Corpuscular Volume 91.4 fL (80.0-100.0); Nucleated Red Blood Cells % 0.1 %
[2025-02-17 07:01] LABS: Albumin 4.1 g/dL (3.2-4.8); Alkaline Phosphatase 98 U/L (46-116); Anion Gap 11 (5-15); BUN/Creatinine Ratio 14.0 (10.0-20.0); Bilirubin, Total 1.0 mg/dL (0.2-1.0); Blood Urea Nitrogen 13 mg/dL (9-23); Calcium 9.2 mg/dL (8.7-10.4); Carbon Dioxide 28 mmol/L (20-31); Chloride 105 mmol/L (98-107); Magnesium 1.8 mg/dL (1.6-2.6); Potassium 3.8 mmol/L (3.5-5.1); Sodium 144 mmol/L (136-145); Total Protein 6.6 g/dL (5.7-8.2)
[2025-02-17 07:04] LABS: Alanine Aminotransferase 48 U/L (7-40); Glucose 117 mg/dL (74-106)
[2025-02-17] MEDS: MULTIPLE VITAMIN TAB PO ONE (14:12)
[2025-02-17] MEDS: FOLIC ACID 1 MG TAB PO ONE (14:12)
[2025-02-17] MEDS: THIAMINE HCL 100 MG TAB PO ONE (14:12)
[2025-02-17] MEDS: MAGNESIUM OXIDE 400 MG TAB PO ONE (14:12)
--- NOTE | 2025-02-17 14:28 | DVHPN2 ---
Progress Note Date Seen: Feb 17, 2025 Medical Necessity Reason Pt with a Central, PICC or Fol: No Subjective Review of Systems Patient is 29 years old male with past medical history of hypertension, diabetes mellitus likely type 2 on insulin, history of alcoholic liver failure, status post liver and kidney transplant, chronic alcoholic, major depressive disorder, generalized anxiety came with a complaint of BC drinking followed by nausea vomiting. As per patient he has been having binge drinking, 50 mL of 10 shortness every day for last 10 days. Started having nausea and vomiting x2, nonbloody. Also reported tremor and palpitation. On admission patient was tachycardic. Initial lab workup revealed AST 50, ALT 46, A1c 10.7, serum alcohol 283, anion gap 18. CT head no acute intracranial abnormality. Ultrasound of the abdomen Normal exam of the abdomen. PMH-hypertension, diabetes mellitus likely type 2 on insulin, history of alcoholic liver failure, status post liver and kidney transplant, chronic alcoholic,major depressive disorder, generalized anxiety PSH- liver and kidney transplant Allergy- NKDA Personal History/ Social History- alcoholic, lives with parents Home medications-insulin short and long-acting, tacrolimus, mycophenolate, prednisolone, lisinopril, Lexapro, Vistaril Review of other system Cardiovascular- deny acute chest pain or shortness of breath or cough or palpitation Respiratory denies cough or short of breath or wheezing Gastrointestinal- nausea and vomiting Musculoskeletal-denies acute joint swelling or tenderness or redness Neurological- palpitation and tremor Psychiatry- denies depression or SI or HI Skin- denies acute rash or purpura Patient is seen today at bedside, labs and chart reviewed. Patient reported feeling better today. Patient has a fine tremor, CIWA 7, on CIWA protocol. Ultrasound of the liver no acute abnormality noted. Restarted patient's home medication tacrolimus, mycophenolate, prednisolone. Patient's tele psych consult to rule out acute depression. Tele psych recommended for Remeron 50 mg p.o. q.h.s.. And also counseled on naltrexone 50 mg p.o. q.d. to decrease alcohol craving.refer to outpatient services for continuation of care. On 02/17/25, the patient was seen and examined at bedside. Overnight events were reviewed. The patient reports improvement in his symptoms. CIWA score was 8 today. The patient was provided thiamine, folic acid, and a multivitamin for alcohol use. After medical stabilization, the patient can be discharged home and referred to outpatient services for continuation of care. Objective vital signs Vital Sign Date Time Temp Pulse Resp B/P (MAP) Pulse Ox O2 Delivery O2 Flow Rate FiO2 02/17/25 13:00 98.5 70 17 140/104 (116) 97 98.5 02/17/25 08:00 Room Air* 0 21 Total Intake and Output 02/16/25 02/16/25 02/17/25 15:00 23:00 07:00 Intake Total 1400 ml 700 ml Output Total 500 ml Balance 1400 ml 200 ml medications Current Medications Medications Dose Ordered Sig/Rosa [place]ela Route Start Time Stop Time Status Last Admin Dose Admin Patient Own Medication 720 mg BID PO 02/15/25 22:00 02/17/25 09:50 720 MG Tacrolimus 2 mg BID PO 02/15/25 22:00 02/17/25 09:49 2 MG Lisinopril 10 mg DAILY PO 02/16/25 10:00 02/17/25 09:49 10 MG Chlordiazepoxide HCl 25 mg Q6HPRN PRN PO 02/15/25 19:15 02/17/25 14:22 25 MG Ondansetron HCl 4 mg Q4HP PRN IV 02/15/25 19:15 02/15/25 20:26 4 MG Diagnostic Test (Pha) 1 strip Q6HR 02/16/25 00:00 02/17/25 11:39 1 STRIP Insulin Human Regular Q6HR SC 02/16/25 00:00 02/17/25 11:42 6 UNITS Dextrose 50 ml UD PRN IV 02/15/25 19:15 Lorazepam 1 mg Q2HP PRN IV 02/16/25 00:15 02/17/25 14:22 1 MG Cyanocobalamin 500 mcg DAILY PO 02/16/25 08:00 02/17/25 09:48 500 MCG Prednisone 5 mg DAILY PO 02/16/25 10:00 02/17/25 09:48 5 MG Insulin Glargine 20 units QAM SC 02/16/25 10:15 02/16/25 12:12 20 UNITS Citalopram Hydrobromide 20 mg DAILY PO 02/16/25 17:15 02/17/25 11:20 20 MG Mirtazapine 15 mg HS PO 02/16/25 22:00 Folic Acid 1 mg DAILY PO 02/18/25 10:00 Multivitamins 1 tab DAILY PO 02/18/25 10:00 Magnesium Oxide 400 mg DAILY PO 02/18/25 10:00 Thiamine HCl 100 mg DAILY PO 02/18/25 10:00 Examination General examination- awake, alert, oriented HEENT- PEERLA, no acute nasal discharge Cardiovascular- S1-S2 audible, rate and rhythm regular, no murmur Respiratory- CTAB, no wheeze or rhonchi Gastrointestinal-nontender, bowel sound+. Nondistended, abdominal scar present Musculoskeletal-no acute joint swelling or tenderness or redness Lower extremity- no leg edema Neurological- cranial nerves intact, no acute dysarthria or dysphagia Psychiatry- denies depression or SI or HI Skin- no acute rash or purpura laboratory and microbiology Laboratory Tests 02/17/25 06:15 Test 02/17/25 06:15 Range/Units Serum Glucose 117 H 74-106 mg/dL Labs and/or images reviewed: Labs reviewed by me, Image(s) reviewed by me Problem List/Assessment/Plan Problem List/Assessment/Plan Assessment and plan # acute alcohol intoxication # toxic encephalopathy # alcohol abuse disorder # transaminitis # metabolic acidosis likely due to alcohol-induced # status post liver kidney transplant -CIWA score: 8 -serum alcohol 283 -continue IV fluid as prescribed -patient on CIWA protocol -continue thiamine and folic acid as prescribed -patient is counseled about the effect of alcohol abuse disorder on -monitor vitals -magnesium # diabetes mellitus likely type 2 with the hypoglycemia -hemoglobin A1c 10.7 -continue insulin as prescribed -monitor blood sugar # hypertension - continue lisinopril 10 mg p.o. daily # status post liver and kidney transplant -resumed home medication tacrolimus, mycophenolate, prednisolone -patient is counseled about the importance of med adherence # major depressive disorder # generalized anxiety disorder -status post tele psych consult, recommended Remeron 50 mg p.o. q.h.s. -continue citalopram 20 mg p.o. daily -mirtazapine Diet-low carb, cardiac diet Goals of care, Code status full code ; discussed with >15 minutes PUD prophylaxis: Pantoprazole DVT prophylaxis: Patient ambulating Plan discussed with Dr. Mcclain , nursing staff, Total time spent on patient evaluation, chart review, assessment and plan, discussion discussion >35 minutes Plan discussed with: Patient Date of Service: Feb 17, 2025 Billing Provider: OLGA MCCLAIN MD Common Visit Codes: [id number] INP/OBS CARE(HIGH) GREGORY CALZADA RESIDENT Feb 17, 2025 14:28
[2025-02-18 01:00] VITALS: BP 123/79; PULSE 58; RESP 13; TEMP 98.2; O2SAT 98
[2025-02-18 06:57] LABS: Albumin 3.9 g/dL (3.2-4.8); Alkaline Phosphatase 93 U/L (46-116); Anion Gap 12 (5-15); BUN/Creatinine Ratio 16.1 (10.0-20.0); Bilirubin, Total 0.8 mg/dL (0.2-1.0); Blood Urea Nitrogen 14 mg/dL (9-23); Calcium 9.1 mg/dL (8.7-10.4); Carbon Dioxide 26 mmol/L (20-31); Chloride 105 mmol/L (98-107); Sodium 143 mmol/L (136-145); Total Protein 6.5 g/dL (5.7-8.2)
[2025-02-18 06:58] LABS: Hematocrit 48.3 % (41.0-53.0); Hemoglobin 17.1 g/dL (13.5-17.5); Mean Corpuscular Hemoglobin 32.2 pg (28.0-32.0); Mean Corpuscular Volume 91.0 fL (80.0-100.0); Nucleated Red Blood Cells % 0.2 %
[2025-02-18 07:03] LABS: Alanine Aminotransferase 78 U/L (7-40); Glucose 135 mg/dL (74-106); Potassium 3.4 mmol/L (3.5-5.1)
[2025-02-18 08:00] VITALS: RESP 18
[2025-02-18 09:00] VITALS: BP 137/81; PULSE 60; RESP 16; TEMP 98.2; O2SAT 99
[2025-02-18] MEDS ORDERED: FOLIC ACID 1 MG TAB ONE (09:39)
[2025-02-18] MEDS ORDERED: THIAMINE HCL 100 MG TAB ONE (09:39)
[2025-02-18] MEDS ORDERED: MULTIPLE VITAMIN TAB ONE (09:40)
[2025-02-18] MEDS ORDERED: MAGNESIUM OXIDE 400 MG TAB ONE (09:40)
[2025-02-18] MEDS: FOLIC ACID 1 MG TAB PO SCH (09:47)
[2025-02-18] MEDS: MULTIPLE VITAMIN TAB PO SCH (09:47)
[2025-02-18] MEDS: MAGNESIUM OXIDE 400 MG TAB PO SCH (09:48)
[2025-02-18] MEDS: THIAMINE HCL 100 MG TAB PO SCH (09:48)
[2025-02-18] MEDS ORDERED: POTASSIUM CHL 20 Meq TABLET PO ONE (09:59)
[2025-02-18] MEDS: POTASSIUM CHL 20 Meq TABLET PO ONE (10:02)
[2025-02-18] MEDS ORDERED: THIA100T13 PO (10:29)
[2025-02-18] MEDS ORDERED: FOLI-119 PO (10:29)
--- NOTE | 2025-02-18 10:33 | DVHDSRES ---
Discharge Summary Date of Admission Resident Creating Document: SUAD WELCH RESIDENT Feb 15, 2025 at 19:15 Date of Discharge: Feb 18, 2025 Admitting Diagnosis Acute alcohol intoxication, Toxic encephalopathy Labs/Diagnostic Data: Laboratory Results Test 02/18/25 05:43 02/18/25 05:20 02/17/25 06:15 02/16/25 21:15 White Blood Count 6.2 10^3/uL (4.4-10.8) Red Blood Count 5.31 10^6/uL (4.5-5.90) Hemoglobin 17.1 g/dL (13.5-17.5) Hematocrit 48.3 % (41.0-53.0) Mean Corpuscular Volume 91.0 fL (80.0-100.0) Mean Corpuscular Hemoglobin 32.2 pg (28.0-32.0) Mean Corpuscular Hemoglobin Concent 35.4 g/dL (32.0-36.0) Red Cell Distribution Width 12.6 % (11.8-14.3) Platelet Count 164 10^3/uL (140-450) Mean Platelet Volume 8.1 fL (6.9-10.8) Neutrophils (%) (Auto) 50.2 % (37.0-80.0) Lymphocytes (%) (Auto) 41.3 % (10.0-50.0) Monocytes (%) (Auto) 7.8 % (0.0-12.0) Eosinophils (%) (Auto) 0.4 % (0.0-7.0) Basophils (%) (Auto) 0.3 % (0.0-2.0) Neutrophils # (Auto) 3.1 10 ^3/uL (1.6-8.6) Lymphocytes # (Auto) 2.5 10 ^3/uL (0.4-5.4) Monocytes # (Auto) 0.5 10 ^3/uL (0-1.3) Eosinophils # (Auto) 0 10 ^3/uL (0-0.8) Basophils # (Auto) 0 10 ^3/uL (0-0.2) Nucleated Red Blood Cells 0.2 % Sodium Level 143 mmol/L (136-145) Potassium Level 3.4 mmol/L (3.5-5.1) Chloride Level 105 mmol/L (98-107) Carbon Dioxide Level 26 mmol/L (20-31) Anion Gap 12 (5-15) Blood Urea Nitrogen 14 mg/dL (9-23) Creatinine 0.87 mg/dL (0.700-1.30) Glomerular Filtration Rate Calc 120 mL/min (>90) BUN/Creatinine Ratio 16.1 (10.0-20.0) Serum Glucose 135 mg/dL (74-106) Calcium Level 9.1 mg/dL (8.7-10.4) Total Bilirubin 0.8 mg/dL (0.2-1.0) Aspartate Amino Transferase (AST) 90 U/L (13-40) Alanine Aminotransferase (ALT) 78 U/L (7-40) Alkaline Phosphatase 93 U/L (46-116) Total Protein 6.5 g/dL (5.7-8.2) Albumin 3.9 g/dL (3.2-4.8) POC Glucose 142 mg/dl (70-106) Magnesium Level 1.8 mg/dL (1.6-2.6) Urine Color Light-yellow (Yellow) Urine Clarity Clear (Clear) Urine pH 7.5 (5.0-9.0) Urine Specific [place] 1.013 (1.001-1.035) Urine Protein Negative (Negative) Urine Ketones 1+ (Negative) Urine Blood Negative /uL (Negative) Urine Nitrite Negative (Negative) Urine Bilirubin Negative (Negative) Urine Urobilinogen Normal mg/dL (Negative) Urine Leukocyte Esterase Negative /uL (Negative) Urine RBC None seen /hpf (0 - 3) Urine Microscopic WBC < 1 /HPF (0-3) Urine Squamous Epithelial Cells None seen /hpf (<5) Urine Bacteria None seen /hpf (None Seen) Urine Glucose 4+ mg/dL (Normal) Urine Opiates Screen Neg (NEGATIVE) Urine Fentanyl Screen Neg (NEGATIVE) Urine Barbiturates Screen Neg (NEGATIVE) Urine Phencyclidine Screen Neg (NEGATIVE) Urine Amphetamines Screen Neg (NEGATIVE) Urine Benzodiazepines Screen Neg (NEGATIVE) Urine Cocaine Screen Neg (NEGATIVE) Urine Cannabinoids Screen Pos (NEGATIVE) Test 02/16/25 08:25 02/15/25 17:29 Hemoglobin A1c 10.7 % A1C (<5.7) Vitamin B12 Level 1231 pg/mL (211-911) Vitamin D 25-Hydroxy 52.9 ng/mL (30.0-100) Thyroid Stimulating Hormone (TSH) 1.32 uIU/mL (0.55-4.78) Plasma/Serum Blood Alcohol 283.6 mg/dL (<10) Other Laboratory Tests 02/18/25 05:43 Brief Hx & Hospital Course: Patient is 29 years old male with past medical history of hypertension, diabetes mellitus likely type 2 on insulin, history of alcoholic liver failure, status post liver and kidney transplant, chronic alcoholic, major depressive disorder, generalized anxiety came with a complaint of BC drinking followed by nausea vomiting. As per patient he has been having binge drinking, 50 mL of 10 shortness every day for last 10 days. Started having nausea and vomiting x2, nonbloody. Also reported tremor and palpitation. On admission patient was tachycardic. Initial lab workup revealed AST 50, ALT 46, A1c 10.7, serum alcohol 283, anion gap 18. CT head no acute intracranial abnormality. Ultrasound of the abdomen Normal exam of the abdomen. Patient was treated conservatively. patient was on CIWA protocol. Patient is adamant about going home today, no nausea vomiting or abdominal pain or headache or hallucination today. On discharge CIWA score 2. Patient is being discharged home with the advised to resume home medications including insulin and other medication. Patient has been to follow up DC clinic/PCP/[facility] regarding status post liver and kidney transplant. Patient is counseled about the effect of alcoholism on health, counseled about med compliance, resources were given regarding alcohol rehab. Patient was hemodynamically stable on discharge General examination- awake, alert, oriented HEENT- PEERLA, no acute nasal discharge Cardiovascular- S1-S2 audible, rate and rhythm regular, no murmur Respiratory- CTAB, no wheeze or rhonchi Gastrointestinal-nontender, bowel sound+. Nondistended, abdominal scar present Musculoskeletal-no acute joint swelling or tenderness or redness Lower extremity- no leg edema Neurological- cranial nerves intact, no acute dysarthria or dysphagia Psychiatry- denies depression or SI or HI Skin- no acute rash or purpura Plan of care discussed with Dr. Mcclain Operations or Procedures [facility] [id number] [place] [id number] Ph: [phone] DIAGNOSTIC IMAGING Diagnostic Imaging Report : [id number] Signed PATIENT: KALANI DONIS ACCT: [id number] UNIT: [id number] : 1995 LOC: OVERFLOW ROOM / BED: 1023ER / A AGE / SEX: 29 / M ADM STATUS: ADM IN SERVICE 1856 ORDERING PHYSICIAN: AUNDREA JOSHI PROCEDURE(s): HWOCT - HEAD WITHOUT CONTRAST REASON: altered ORDER NUMBER(s): [id number], ACCESSION NUMBER(s): [id number] EXAM: CT HEAD WITHOUT CONTRAST INDICATION: altered TECHNIQUE: CT images of the head were obtained without administration of IV contrast. CT scans at this facility use dose modulation, iterative reconstruction, and/or weight based dosing when appropriate to reduce radiation dose to as low as reasonably achievable. COMPARISON: None FINDINGS: PARENCHYMA: No acute hemorrhage. There is no mass effect, midline shift, or herniation. There is preservation of the [place] white differentiation. VENTRICLES: No hydrocephalus. EXTRA-AXIAL SPACES: No extra-axial fluid collections. OTHER: The bony structures are intact. Visualized portions of the paranasal sinuses and mastoid air cells are clear. IMPRESSION: 1. No CT evidence of an acute intracranial abnormality. ATED BY: LORENZO STEVENS MD DICTATED DATE/TIME: 02/15/251945 SIGNED BY: LORENZO STEVENS MD SIGNED DATE/TIME: 02/15/251945 CC: [place] [id number] Ph: [phone] DIAGNOSTIC IMAGING Diagnostic Imaging Report : [id number] Signed PATIENT: KALANI DONIS ACCT: [id number] UNIT: [id number] : 1995 LOC: CENTRAL ROOM / BED: 0223 / A AGE / SEX: 29 / M ADM STATUS: ADM IN SERVICE 0815 ORDERING PHYSICIAN: SUAD WELCH PROCEDURE(s): LIVUS - LIVER REASON: Hepatic steatosis/cirrhosis ORDER NUMBER(s): [id number], ACCESSION NUMBER(s): [id number] INDICATION: Hepatic steatosis/cirrhosis TECHNIQUE: Multiple real-time sonographic images of the abdomen were obtained. COMPARISON: None FINDINGS: The liver is homogenous in echogenicity. The liver measures 15cm. No intrahepatic biliary ductal dilatation is noted. Gallbladder removed. Common bile duct measures 4 mm. The right kidney measures 8cm. No hydronephrosis. The pancreas is not well visualized due to obscuration from bowel gas. The visualized portions of the IVC and aorta are grossly unremarkable. IMPRESSION: Normal exam of the abdomen. ATED BY: VINICIO DIGGS MD DICTATED DATE/TIME: 02/16/25951 SIGNED BY: VINICIO DIGGS MD SIGNED DATE/TIME: 02/16/25951 CC: Condition at Discharge: Stable Final Diagnosis/Problems List # acute alcohol intoxication # toxic encephalopathy # alcohol abuse disorder # transaminitis # metabolic acidosis likely due to alcohol-induced # status post liver kidney transplant # diabetes mellitus likely type 2 with the hypoglycemia # hypertension # status post liver and kidney transplant # major depressive disorder # generalized anxiety disorder Discharge Disposition: Home Discharge Instruct/Medications Diet: Consistent carbohydrate, Cardiac 2g Na,low cholest Activity: No Restrictions, As Tolerated Follow Up/Referral: DC clinic PCP Please follow up with the Nelli Bernal regarding your liver and kidney transplant follow up Medications: Thiamine Folic acid Please resume home medications Scheduled Dapagliflozin Propanediol (Farxiga), 5 MG PO DAILY, (Reported) Folic Acid (Folic Acid), 1 MG PO DAILY Lisinopril (Lisinopril), 5 MG PO DAILY, (Reported) Mycophenolate Mofetil (Cellcept), 360 MG PO BID, (Reported) Prednisone (Prednisone), 5 MG PO DAILY, (Reported) Tacrolimus (Tacrolimus), 2 MG PO BID, (Reported) Thiamine HCl (Thiamine Hydrochloride), 100 MG PO DAILY Discharge Statement: "Patient was advised to return to the ER or call 911 if any headaches, dizziness, shortness of breath, chest pain, abdominal pain, bleeding, fevers, or worsening of medical condition. Patient was counseled about treatment plan, medications, possible side effects, patientverbalized understanding. All questions were answered to the best of my ability. This discharge took greater then 30 minutes in planning, reviewing documentation, counseling the patient, and discussing with other team members." ASSESSMENT ASSESSMENT Assessment Date of Service: Feb 18, 2025 Billing Provider: OLGA MCCLAIN MD Common Visit Codes: 80653-KUD/OBS DISCH DAY >30min SUAD WELCH RESIDENT Feb 18, 2025 10:33
[2025-02-18 10:58] VITALS: BP 125/81; PULSE 71; RESP 18; TEMP 36.8; O2SAT 98
== END 2025-02-18 12:00 | disposition home or self-care (01) | DRG 52 ==
LOC: ER 16:11 → OVERFLOW 19:15 → CENTRAL 02-16 05:02
PROVIDERS: ADMIT Nurse Practitioner; ATTEND Nurse Practitioner
DX: G92.9 Unspecified toxic encephalopathy (principal); E87.20 Acidosis, unspecified; Z94.4 Liver transplant status; Z94.0 Kidney transplant status; F10.129 Alcohol abuse with intoxication, unspecified; E11.649 Type 2 diabetes mellitus with hypoglycemia without coma; F32.9 Major depressive disorder, single episode, unspecified; I10 Essential (primary) hypertension; F41.1 Generalized anxiety disorder; R74.01 Elevation of levels of liver transaminase levels; Z56.0 Unemployment, unspecified; Z79.899 Other long term (current) drug therapy; Y90.8 Blood alcohol level of 240 mg/100 ml or more
CPT/HCPCS: 36415; 70450; 76705; 80053; 80197; 80307; 80320; 81001; 82306; 82607; 82746; 82962; 83036; 83735; 84443; 85025; 93005; 96361; 96374; 96375; G0378; J1815; J2405; J7507